=== PATIENT | female | born 1955 | race Two or more races ===

== ENCOUNTER 2017-10-06 09:07 | Outpatient (CLI) | payer OTHER | END 2017-10-06 09:25 | disposition home or self-care (01) | LOC: SONOGRAMA 09:07 | DX: N60.11 Diffuse cystic mastopathy of right breast (principal); N60.12 Diffuse cystic mastopathy of left breast; N63.11 Unspecified lump in the right breast, upper outer quadrant ==

== ENCOUNTER → 2017-10-31 10:23 | Outpatient (CLI) | payer OTHER | END | disposition home or self-care (01) | LOC: LAB 10:23 | DX: D64.89 Other specified anemias (principal); D68.8 Other specified coagulation defects; N39.0 Urinary tract infection, site not specified; I10 Essential (primary) hypertension; R07.89 Other chest pain ==

== ENCOUNTER 2017-11-28 09:19 | Day surgery (SDC) | payer OTHER ==
[~2017-11-28 09:19] MED LIST: CATAFLAN PO; GABAPENTIN800 MG PO; METHOTREXATE2.5 MG PO; MILLIPRED5 MG PO
[2017-11-28] MEDS ORDERED: ULTRACET PO (14:21)
[2017-11-28] MEDS ORDERED: MACROBID 100 M100 MG PO (14:22)
== END 2017-11-28 18:00 | disposition home or self-care (01) ==
LOC: CIR.AMB 09:19
DX: N39.3 Stress incontinence (female) (male) (principal)
CPT/HCPCS: 57288; C1771

== ENCOUNTER 2018-07-17 10:46 | Outpatient (CLI) | payer OTHER ==
[~2018-07-17 10:46] MED LIST changes: +MACROBID 100 M100 MG PO; +ULTRACET PO
== END 2018-07-17 10:57 | disposition home or self-care (01) ==
LOC: MAMO-SONO 10:46
DX: Z12.31 Encounter for screening mammogram for malignant neoplasm of breast (principal); Z87.898 Personal history of other specified conditions; N63.10 Unspecified lump in the right breast, unspecified quadrant; N63.20 Unspecified lump in the left breast, unspecified quadrant; M75.51 Bursitis of right shoulder; M75.52 Bursitis of left shoulder; M54.2 Cervicalgia; M06.89 Other specified rheumatoid arthritis, multiple sites; M16.0 Bilateral primary osteoarthritis of hip; M17.0 Bilateral primary osteoarthritis of knee

== ENCOUNTER 2018-10-12 13:01 | Outpatient (CLI) | payer OTHER | END 2018-10-12 17:00 | disposition home or self-care (01) | LOC: MRI 13:01 | DX: M60.89 Other myositis, multiple sites (principal); M54.17 Radiculopathy, lumbosacral region | CPT/HCPCS: 72148 ==

== ENCOUNTER 2019-02-11 10:39 | Outpatient (CLI) | payer OTHER | END 2019-02-11 10:45 | disposition home or self-care (01) | LOC: SONOGRAMA 10:39 → MAMO-SONO 10:45 | DX: E04.1 Nontoxic single thyroid nodule (principal) ==

== ENCOUNTER 2023-02-07 11:01 | Outpatient (CLI) | payer OTHER | END 2023-02-07 11:07 | disposition home or self-care (01) | LOC: SONOGRAMA 11:01 | PROVIDERS: ATTEND Specialist | DX: N83.209 Unspecified ovarian cyst, unspecified side (principal) ==